=== PATIENT | female | born 1945 | race Caucasian/White ===

== ENCOUNTER 2018-06-22 08:12 | Outpatient (CLI) | payer MEDICARE ==
[2018-06-22 13:01] LABS: BASOPHILS # (AUTO) 0.1 10^3/uL (0.0-0.1); BASOPHILS % (AUTO) 0.9 %; EOSINOPHILS # (AUTO) 0.1 10^3/uL (0.0-0.7); EOSINOPHILS % (AUTO) 1.2 %; HGB - HEMOGLOBIN 13.9 g/dL (12.0-16.0); LYMPHOCYTES # (AUTO) 2.4 10^3/uL (1.5-3.5); LYMPHOCYTES % (AUTO) 33.9 %; MEAN CORPUSCULAR HEMOGLOBIN 31.8 pg (27.0-31.0); MEAN CORPUSCULAR HGB CONC 34.3 g/dL (32.0-36.0); MEAN CORPUSCULAR VOLUME 92.7 fL (81.0-99.0); MEAN PLATELET VOLUME 8.7 fL (7.9-10.8); MONOCYTES # (AUTO) 0.6 10^3/uL (0.0-1.0); MONOCYTES % (AUTO) 7.9 %; NEUTROPHILS # (AUTO) 3.9 10^3/uL (1.5-6.6); NEUTROPHILS % (AUTO) 56.1 %; PLT - PLATELET COUNT 65 10^3/uL (130-450); RED BLOOD COUNT 4.38 10^6/uL (4.20-5.40); RED CELL DISTRIBUTION WIDTH 13.3 % (12.0-15.0)
[2018-06-22 13:16] LABS: ALBUMIN/GLOBULIN RATIO 1.5 (1.0-2.2); ALKALINE PHOSPHATASE 63 IU/L (42-121); ALT ALANINE AMINOTRANSFERASE 20 IU/L (10-60); AST ASPARTATE AMINOTRANSFERASE 24 IU/L (10-42); BILIRUBIN,TOTAL 0.9 mg/dL (0.2-1.0); BUN - BLOOD UREA NITROGEN 15 mg/dL (6-20); CALCIUM 8.8 mg/dL (8.5-10.3); CARBON DIOXIDE - CO2 25 mmol/L (21-32); CHLORIDE 106 mmol/L (101-111); CHOL/HDL RATIO 2.7 (<4.4); CHOLESTEROL 200 mg/dL; CREATININE 0.9 mg/dL (0.4-1.0); GFR - MDRD 62 (>89); GLUCOSE 102 mg/dL (70-100); HDL CHOLESTEROL 74 mg/dL; SODIUM 138 mmol/L (135-145); TOTAL PROTEIN 6.7 g/dL (6.7-8.2)
[2018-06-22 13:23] LABS: PLATELET ESTIMATE, MANUAL NORMAL (130-450,000) (NORMAL)
[2018-06-22 13:24] LABS: PLATELET MORPHOLOGY PLATELET C (NORMAL)
[2018-06-22 13:26] LABS: THYROID STIMULATING HORMONE 2.42 uIU/mL (0.34-5.60)
[2018-06-22 13:53] LABS: LDL CHOLESTEROL,DIRECT 115 mg/dL; LDLD/HDL RATIO 1.6 (<4.4)
== END 2018-06-22 08:13 | disposition home or self-care (01) ==
LOC: LAB.N 08:12
PROVIDERS: ATTEND Nurse Practitioner
DX: I10 Essential (primary) hypertension (principal); E55.9 Vitamin D deficiency, unspecified; R53.83 Other fatigue
CPT/HCPCS: 36415; 80053; 80061; 82306; 82607; 82746; 83721; 84443; 85025

== ENCOUNTER 2018-07-04 11:25 | Outpatient (CLI) | payer MEDICARE ==
--- NOTE | 2018-07-13 11:19 | Mammography Report ---
Reason: SCREENING MAMMO Procedure Date: 07/04/2018 Accession Number: [id number] / [id number] Procedure: MGN - Screening Mammo Dig Bilat CPT Code: FULL RESULT: EXAM: Screening Mammo Dig Bilat DATE: 07/04/2018 11:43 AM CLINICAL HISTORY: 73-year-old female with family history of breast cancer in the daughter at age 46 for screening. TECHNIQUE: Bilateral CC and MLO views were obtained. COMPARISON: 08/24/2016, 08/07/2015, 06/21/2014, 12/15/2012. FINDINGS: The breasts demonstrate diffuse fatty replacement bilaterally. The right MLO view demonstrates a developing asymmetry 5.7 cm deep to the nipple centrally. There is no definite correlate on the cc projection. This possibly represents tissue overlap and additional views by tomography, spot technique and possibly ultrasound of the right breast are recommended to clarify the finding. No suspicious masses, clustered microcalcifications, or regions of architectural distortion are identified in the left breast. IMPRESSION: Incomplete examination RECOMMENDATION: Additional evaluation of the right breast with 3-D mammography and possibly ultrasound as above. BIRADS CATEGORY 0: Incomplete examination STANDARD QUALIFYING STATEMENTS: 1. This examination was reviewed with the aid of Computer-Aided Detection (CAD). 2. A negative or benign imaging report should not delay biopsy if clinically suspicious findings are present. Consider surgical consultation if warrented. More than 5% of cancers are not identified by imaging. 3. Dense breasts may obscure an underlying neoplasm. 4. This examination was reviewed without the aid of 3D breast imaging (tomosynthesis).
== END 2018-07-04 11:26 | disposition home or self-care (01) ==
LOC: DI.N 11:25
PROVIDERS: ATTEND Nurse Practitioner
DX: Z12.31 Encounter for screening mammogram for malignant neoplasm of breast (principal)
CPT/HCPCS: 77067

== ENCOUNTER 2018-08-08 09:04 | Outpatient (CLI) | payer MEDICARE ==
--- NOTE | 2018-08-08 16:29 | Mammography Report ---
Reason: ABN MAMMO - RT SPEC VIEWS Procedure Date: 08/08/2018 Accession Number: [id number] / [id number] Procedure: GLORIA - Diag Special Views Dig RT CPT Code: FULL RESULT: EXAM: Diag Special Views Dig RT DATE: 08/08/2018 10:05 AM CLINICAL HISTORY: Diagnostic mammogram for a right breast finding identified on screening which requires additional imaging. Family history of breast cancer in her daughter at the age of 48. TECHNIQUE: Bilateral CC, MLO and ML views are performed in 2-D and 3-D tomographic technique. COMPARISON: 07/04/2018 through 12/15/2012. FINDINGS: The breasts demonstrate diffuse fatty replacement bilaterally. The previously seen right breast finding is identified as prior soft tissue overlap with no underlying lesion, architectural distortion or suspicious calcifications and not replicated on today's images. There are no suspicious architectural distortions, calcifications or masses seen in either breast. IMPRESSION: Negative examination RECOMMENDATION: Recommend routine annual Screening mammography unless otherwise clinically indicated. BIRADS CATEGORY 1: Negative STANDARD QUALIFYING STATEMENTS: 1. This examination was not reviewed with the aid of Computer-Aided Detection (CAD). 2. A negative or benign imaging report should not delay biopsy if clinically suspicious findings are present. Consider surgical consultation if warrented. More than 5% of cancers are not identified by imaging. 3. Dense breasts may obscure an underlying neoplasm. 4. This examination was reviewed with the aid of 3D imaging (tomography).
== END 2018-08-08 09:05 | disposition home or self-care (01) ==
LOC: DI 09:04
PROVIDERS: ATTEND Nurse Practitioner
DX: R92.8 Other abnormal and inconclusive findings on diagnostic imaging of breast (principal); Z80.3 Family history of malignant neoplasm of breast

== ENCOUNTER 2018-11-03 09:49 | Outpatient (CLI) | payer OTHER ==
--- NOTE | 2018-11-04 10:13 | DEXA Report ---
Reason: BONE DISORDER Procedure Date: 11/03/2018 Accession Number: [id number] / [id number] Procedure: DEX - Dexa Spine and/or Hip CPT Code: FULL RESULT: EXAM: Dexa Spine and/or Hip DATE: 11/03/2018 10:12 AM CLINICAL HISTORY: BONE DISORDER TECHNIQUE: Dual energy x-ray absorptiometry (DXA) was performed on a [employer] System. Regions measured are the AP Spine, femoral neck, and if needed forearm. COMPARISON: None. In accordance with the International Society for Clinical Densitometry (ISCD) guidelines, data from previous exams may be reanalyzed using current recommendations and techniques. This is done to allow a more accurate basis for comparison with the current study. FINDINGS: The data for the lumbar spine is as follows: BMD (g/cm/cm) T-SCORE Z-SCORE REGION L1 0.901 -1.9 0.0 L2 1.295 0.8 2.7 L3 1.177 -0.2 1.7 L4 0.955 -2.0 -0.2 TOTAL 1.079 -0.8 1.0 NOTE: All evaluable vertebrae are used for classification The data for the hip is as follows: BMD (g/cm/cm) T-SCORE Z-SCORE REGION Neck 0.808 -1.7 0.2 TOTAL 0.775 -1.8 -0.2 NOTE: The femoral neck or total proximal femur, whichever is lowest, is used for classification. IMPRESSION: THE WHO CLASSIFICATION BASED ON THE INTERNATIONAL REFERENCE STANDARD IS OSTEOPENIA. THE FRACTURE RISK IS INCREASED. RECOMMENDATION: Patients with diagnosis of osteoporosis or osteopenia should have regular bone mineral density assessment. For those eligible for Medicare, routine testing is allowed once every 2 years. Testing frequency can be increased for patients who have rapidly progressing disease or for those who are receiving medical therapy to restore bone mass. COMMENT: World Health Organization (WHO) definitions for osteoporosis and osteopenia: NORMAL BMD: T-score at -1.0 or higher, fracture risk is low OSTEOPENIA BMD: T-score between -1.0 and -2.5, fracture risk is increased. OSTEOPOROSIS BMD: T-score at -2.5 or lower, fracture risk is high. National Osteoporosis Foundation recommends: 1. Obtain adequate dietary calcium (at least 1200 mg per day) and vitamin D (400-800 international units per day). 2. Participate, as appropriate, in regular weightbearing and muscle-strengthening exercise. 3. Avoid tobacco use and reduce alcohol and caffeine intake. 4. For more detailed information see the website at www.NOF.org.
== END 2018-11-03 09:50 | disposition home or self-care (01) ==
LOC: DI 09:49
PROVIDERS: ATTEND Nurse Practitioner
DX: M85.88 Other specified disorders of bone density and structure, other site (principal)
CPT/HCPCS: 77080

== ENCOUNTER 2020-04-29 09:27 | Outpatient (CLI) | payer MEDICARE, OTHER ==
[2020-04-29 11:46] LABS: BASOPHILS # (AUTO) 0.1 10^3/uL (0.0-0.1); BASOPHILS % (AUTO) 0.7 %; EOSINOPHILS # (AUTO) 0.1 10^3/uL (0.0-0.7); EOSINOPHILS % (AUTO) 1.6 %; HGB - HEMOGLOBIN 14.5 g/dL (12.0-16.0); LYMPHOCYTES # (AUTO) 2.6 10^3/uL (1.5-3.5); LYMPHOCYTES % (AUTO) 38.5 %; MEAN CORPUSCULAR HEMOGLOBIN 30.8 pg (27.0-31.0); MEAN CORPUSCULAR HGB CONC 32.9 g/dL (32.0-36.0); MEAN CORPUSCULAR VOLUME 93.6 fL (81.0-99.0); MONOCYTES # (AUTO) 0.6 10^3/uL (0.0-1.0); MONOCYTES % (AUTO) 8.1 %; NEUTROPHILS # (AUTO) 3.5 10^3/uL (1.5-6.6); NEUTROPHILS % (AUTO) 50.8 %; RED BLOOD COUNT 4.71 10^6/uL (4.20-5.40); RED CELL DISTRIBUTION WIDTH 12.6 % (12.0-15.0); WHITE BLOOD COUNT 6.8 x10^3/uL (4.8-10.8)
[2020-04-29 12:16] LABS: PLATELET MORPHOLOGY PLATELET CLUMPING (NORMAL)
[2020-04-29 12:17] LABS: PLATELET ESTIMATE, MANUAL NORMAL (130-450,000) (NORMAL)
[2020-04-29 12:19] LABS: ALBUMIN 4.3 g/dL (3.2-5.5); ALBUMIN/GLOBULIN RATIO 1.5 (1.0-2.2); ALKALINE PHOSPHATASE 72 IU/L (42-121); ALT ALANINE AMINOTRANSFERASE 18 IU/L (10-60); AST ASPARTATE AMINOTRANSFERASE 27 IU/L (10-42); BILIRUBIN,TOTAL 1.2 mg/dL (0.2-1.0); BUN - BLOOD UREA NITROGEN 14 mg/dL (6-20); CALCIUM 9.6 mg/dL (8.5-10.3); CARBON DIOXIDE - CO2 25 mmol/L (21-32); CHLORIDE 102 mmol/L (101-111); CHOL/HDL RATIO 3.2 (<4.4); CHOLESTEROL 205 mg/dL; CREATININE 0.8 mg/dL (0.4-1.0); GLUCOSE 102 mg/dL (70-100); HDL CHOLESTEROL 65 mg/dL; LDL CHOLESTEROL,CALCULATED 131 mg/dL; SODIUM 139 mmol/L (135-145); TOTAL PROTEIN 7.1 g/dL (6.7-8.2); VLDL CHOLESTEROL 9 mg/dL
[2020-04-29 12:20] LABS: RBC MORPHOLOGY (MULTIPLE) NORMAL APPEARANCE (NORMAL)
== END 2020-04-29 23:59 | disposition home or self-care (01) ==
LOC: LAB.WCP 09:27
PROVIDERS: ATTEND Physician Assistant
DX: I10 Essential (primary) hypertension (principal); Z79.899 Other long term (current) drug therapy
CPT/HCPCS: 36415; 80053; 80061; 83721; 84443; 85025

== ENCOUNTER 2020-05-14 08:16 | Outpatient (CLI) | payer MEDICARE ==
--- NOTE | 2020-05-15 10:01 | Mammography Report ---
BILATERAL DIGITAL SCREENING MAMMOGRAM 3D/2D: 05/14/2020 CLINICAL: Routine screening. Comparison is made to exams dated: 07/04/2018 mammogram and 06/28/2018 mammogram - [facility]. There are scattered fibroglandular elements in both breasts. No significant masses, calcifications, or other findings are seen in either breast. There has been no significant interval change. IMPRESSION: NEGATIVE There is no mammographic evidence of malignancy. A 1 year screening mammogram is recommended. This exam was interpreted at Station ID: [id number]. NOTE: For mammograms, a report in lay terms will be sent to the patient. Approximately 15% of breast malignancies will not be visualized mammographically. In the management of a palpable breast mass, a negative mammogram must not discourage biopsy of a clinically suspicious lesion. Electronically Signed By: Pool Echeverria M.D., jr/hayley:05/15/2020 08:42:45 ACR BI-RADS Category 1: Negative 3341F PARENCHYMAL PATTERN: (A) - The breast(s) demonstrate(s) scattered fibroglandular densities. BI-RADS CATEGORY: (1) - 1 RECOMMENDATION: (ANNUAL) - Recommend routine annual screening mammography. [id number] 1 year screening LATERALITY: (B)
== END 2020-05-14 08:17 | disposition home or self-care (01) ==
LOC: DI.N 08:16
DX: Z12.31 Encounter for screening mammogram for malignant neoplasm of breast (principal)
CPT/HCPCS: 77063; 77067

== ENCOUNTER 2022-03-26 10:03 | Outpatient (CLI) | payer MEDICARE ==
[2022-03-26 12:17] LABS: ALBUMIN 4.4 g/dL (3.2-5.5); ALBUMIN/GLOBULIN RATIO 1.6 (1.0-2.2); ALKALINE PHOSPHATASE 62 IU/L (42-121); ALT ALANINE AMINOTRANSFERASE 18 IU/L (10-60); AST ASPARTATE AMINOTRANSFERASE 25 IU/L (10-42); BASOPHILS # (AUTO) 0.1 10^3/uL (0.0-0.1); BASOPHILS % (AUTO) 1.4 %; BILIRUBIN,TOTAL 1.1 mg/dL (0.2-1.0); BUN - BLOOD UREA NITROGEN 22 mg/dL (6-20); CALCIUM 9.6 mg/dL (8.5-10.3); CARBON DIOXIDE - CO2 26 mmol/L (21-32); CHLORIDE 104 mmol/L (101-111); CHOL/HDL RATIO 3.3 (<4.4); CHOLESTEROL 238 mg/dL; EOSINOPHILS # (AUTO) 0.2 10^3/uL (0.0-0.7); EOSINOPHILS % (AUTO) 2.3 %; GFR - MDRD 54 (>89); GLUCOSE 106 mg/dL (70-100); HCT - HEMATOCRIT 43.6 % (37.0-47.0); HDL CHOLESTEROL 72 mg/dL; HGB - HEMOGLOBIN 14.8 g/dL (12.0-16.0); LDL CHOLESTEROL,CALCULATED 154 mg/dL; LDL/HDL RATIO 2.1 (<4.4); LYMPHOCYTES # (AUTO) 2.3 10^3/uL (1.5-3.5); LYMPHOCYTES % (AUTO) 35.6 %; MEAN CORPUSCULAR HEMOGLOBIN 31.1 pg (27.0-31.0); MEAN CORPUSCULAR HGB CONC 33.9 g/dL (32.0-36.0); MEAN CORPUSCULAR VOLUME 91.6 fL (81.0-99.0); MEAN PLATELET VOLUME 11.5 fL (7.9-10.8); MONOCYTES # (AUTO) 0.6 10^3/uL (0.0-1.0); MONOCYTES % (AUTO) 8.4 %; NEUTROPHILS # (AUTO) 3.4 10^3/uL (1.5-6.6); POTASSIUM 4.2 mmol/L (3.5-5.0); RED BLOOD COUNT 4.76 10^6/uL (4.20-5.40); RED CELL DISTRIBUTION WIDTH 13.4 % (12.0-15.0); SODIUM 140 mmol/L (135-145); TOTAL PROTEIN 7.2 g/dL (6.7-8.2); TRIGLYCERIDES 62 mg/dL; VLDL CHOLESTEROL 12 mg/dL; WHITE BLOOD COUNT 6.6 x10^3/uL (4.8-10.8)
[2022-03-26 12:28] LABS: THYROID STIMULATING HORMONE 2.81 uIU/mL (0.34-5.60)
[2022-03-26 12:31] LABS: PLATELET MORPHOLOGY PLATELET CLUMPING (NORMAL); SLIDE REVIEW? Indicated
[2022-03-26 12:32] LABS: RBC MORPHOLOGY (MULTIPLE) NORMAL APPEARANCE (NORMAL)
== END 2022-03-26 10:04 | disposition home or self-care (01) ==
LOC: LAB.N 10:03
PROVIDERS: ATTEND Nurse Practitioner
DX: I10 Essential (primary) hypertension (principal); Z13.220 Encounter for screening for lipoid disorders; Z86.39 Personal history of other endocrine, nutritional and metabolic disease
CPT/HCPCS: 36415; 80053; 80061; 83721; 84443; 85025

== ENCOUNTER 2022-12-05 00:49 | Outpatient (CLI) | payer MEDICARE | END 2022-12-05 23:59 | disposition critical access hospital (66) | LOC: EMS 00:49 | DX: R41.0 Disorientation, unspecified (principal) | CPT/HCPCS: A0425; A0429 ==

== ENCOUNTER 2022-12-05 01:38 | Emergency (ER) | payer MEDICARE ==
--- NOTE | 2022-12-05 01:52 | ED Physician Documentation ---
PD HPI ALTERED MENTAL STATUS - Stated complaint Stated Complaint: AMS - Chief complaint Chief Complaint: Neuro - History obtained from History obtained from: Patient, Family - History of Present Illness Basline status: Alert and oriented X 3, Ambulatory, Independent - Additional information Additional information: HPI is predominantly from patient's , as patient's presenting issue is short-term memory loss. The patient is able to converse articulately although clearly has anterograde amnesia since onset of symptoms at 10 PM. Patient is brought in by ambulance. Patient's says that he and the patient were watching a baseball game tonight and he was getting tired and told patient he was going to bed. This was at approximately 10 PM. The patient then asked the why he had a suitcase out. The says that he and his had just returned from a long car trip from [place] this evening and he reminded the patient that they jus t had a long car trip earlier in the day, and the patient had no recollection of this. says patient has no history of dementia or any other problems with memory. He noted that patient remained completely articulate and able to recall information and details up until earlier today, but over the ensuing few hours before calling 911, he became increasingly aware that the patient was unable to retain new information, repeating questions he had answered just minutes earlier. He did not notice any weakness, slurred speech. He contacted a family member is in the medical profession and due to the persistence of symptoms he then called 911. On my HPI, patient says she feels "fine". She does not know how she got to the emergency department and when I tell her that she came in by ambulance, she is very upset because she has no recollection of this. FSBS by EMS is 116. Patient's only medical history is hypertension for which she takes lisinopril. Review of Systems Constitutional: denies: Fever, Chills, Sweats Cardiac: reports: Reviewed and negative Respiratory: reports: Reviewed and negative GI: reports: Reviewed and negative Musculoskeletal: reports: Reviewed and negative Neurologic: reports: Altered mental status. denies: Generalized weakness, Focal weakness, Numbness, Difficulty speaking, Headache, Head injury, LOC PD PAST MEDICAL HISTORY - Past Medical History Past Medical History: Yes Cardiovascular: Hypertension - Present Medications Home Medications: Ambulatory Orders Medication Instructions Recorded Confirmed Lisinopril [Zestril] 10 mg PO DAILY 04/01/23 04/01/23 - Allergies Allergies/Adverse Reactions: Allergies Allergy/AdvReac Type Severity Reaction Status Date / Time No Known Drug Allergies Allergy Verified 12/05/22 03:18 - Living Situation Living Situation: reports: With spouse/s.o. Living Arrangement: reports: At home PD ED PE NORMAL - Vitals Vital signs reviewed: Yes - General General: Alert and oriented X 3, No acute distress, Well developed/nourished - HEENT HEENT: PERRL, EOMI, Moist mucous membranes - Neck Neck: Supple, no meningeal sign - Cardiac Cardiac: RRR, No murmur - Respiratory Respiratory: No respiratory distress, Clear bilaterally - Abdomen Abdomen: Soft, Non tender - Neuro Neuro: Alert and oriented X 3, strategy manager 2-12 intact, No motor deficit, No sensory deficit, Normal speech Eye Opening: Spontaneous Motor: Obeys Commands Verbal: Oriented GCS Score: 15 NIHSS - Time Time: 02:45 - Level of Consciousness Level of consciousness: (0) Alert, Keenly responsive LOC Questions: (1) Answers one Q correctly (does not know her age) LOC Commands: (0) Performs both correctly - Gaze Best Gaze: (0) Normal - Visual Visual: (0) No loss - Facial Palsy Facial Palsy: (0) Normal, symmetrical movement - Motor Arms (both separate) Motor Arm (right): (0) No drift Motor Arm (left): (0) No drift - Motor Legs (both separate) Motor Leg (right): (0) No drift Motor Leg (left): (0) No drift - Limb Ataxia Limb Ataxia: (0) Absent - Sensory Sensory: (0) Normal - Best Language Best Language: (0) No aphasia - Dysarthria Dysarthria: (0) Normal - Extinction and Inattention (formally neg Extinction and inattention: (0) No abnormality - Total Score/Results Total Score/Result: 1 Results - Vitals Vitals: Vital Signs - 24 hr 12/05/22 12/05/22 12/05/22 01:48 02:42 03:45 Temperature 36.6 C Heart Rate 95 92 92 Respiratory 16 99 H 24 Rate Blood Pressure 140/82 H 135/112 H 132/76 H O2 Saturation 94 100 98 12/05/22 12/05/22 12/05/22 05:44 06:24 07:20 Temperature 36.4 C L Heart Rate 97 86 88 Respiratory 19 12 12 Rate Blood Pressure 102/62 119/67 121/68 O2 Saturation 97 97 96 Oxygen O2 Source Room air - Labs Labs: Laboratory Tests 12/05/22 12/05/22 12/05/22 02:05 02:05 03:00 WBC 18.0 H RBC 4.52 Hgb 13.8 Hct 41.3 MCV 91.4 MCH 30.5 MCHC 33.4 RDW 12.9 Plt Count 200 MPV 10.2 Neut # (Auto) 15.4 H Lymph # (Auto) 1.3 L [place] # (Auto) 1.1 H Eos # (Auto) 0.1 Baso # (Auto) 0.1 Absolute Nucleated RBC 0.00 Nucleated RBC % 0.0 Sodium 139 Potassium 3.6 Chloride 107 Carbon Dioxide 23 Anion Gap 9.0 BUN 25 H Creatinine 0.9 Estimated GFR (MDRD) 61 L Glucose 134 H Calcium 8.9 Total Bilirubin 0.9 AST 23 ALT 19 Alkaline Phosphatase 60 Total Protein 6.8 Albumin 4.0 Globulin 2.8 Albumin/Globulin Ratio 1.4 Lipase 32 Urine Color COLORLESS Urine Clarity CLEAR Urine pH 5.5 Ur Specific [place] <=1.005 Urine Protein NEGATIVE Urine Glucose (UA) NEGATIVE Urine Ketones NEGATIVE Urine Occult Blood NEGATIVE Urine Nitrite NEGATIVE Urine Bilirubin NEGATIVE Urine Urobilinogen 0.2 (NORMAL) Ur Leukocyte Esterase NEGATIVE Ur Microscopic Review NOT INDICATED Urine Culture Comments NOT INDICATED - Rads (name of study) CTH Relevant Findings:: Prelim report reviewed, See rad report CTA head Relevant Findings:: Prelim report reviewed, See rad report CTA neck Relevant Findings:: Prelim report reviewed, See rad report PD Medical Decision Making - ED course Complexity details: reviewed results, re-evaluated patient, considered differential, d/w patient, d/w family ED course: Patient is awake, alert, and she is able to answer orientation questions x3 accurately. However, she clearly demonstrates lack of ability to retain new information. Each time I would return to reevaluate the patient, she had no recollection of meeting me. She would consistently forget how she had arrived to the emergency department (sometimes forgetting within the same conversation a few minutes after being reminded how she arrived), and each time she was reminded that she arrived by ambulance, she would become quite upset due to the realization that she is having acute memory problems. She does not recall the long car trip back from [place] earlier today. She is able to name all of her children and their dates without hesitation or difficulty; however, while she can remember her own birthday, when we then asked her age she does not know nor even have a guess. CT head is unremarkable, as are CTA of her head and CTA of her neck. She has an elevated white blood cell count (18), but is afebrile, has no elements of the history nor the physical to suggest infectious etiology. Her urinalysis is normal. She has an elevated BUN (25) with a normal creatinine (0.9); while dehydration would not account for symptoms, she is given a fluid bolus for this elevated BUN/creatinine ratio. Her presentation is increasingly suggestive of transient global amnesia. I c onsulted neurology on-call for [facility] (Dr. Kamara); he recommends MRI brain, looking for evidence of CVA (such as hippocampus). He decreased that transient global amnesia seems the likely diagnosis, and that patient would be appropriate for discharge home if the MR I is unremarkable and her symptoms are improving or, ideally, resolved. [facility] (Dr. Valdez) at the end of my shift. She is pending MRI. Shortly after turnover of care, I reevaluated patient one last time and she is finally showing improvement in her ability to retain new information. While she does not remember my name, she says she remembers me, accurately saying "you were in here about half an hour ago". She still does not remember coming in by ambulance, but she is no longer upset by this information, and appears to be having some recollection of being told she came in by ambulance before. She also is starting to remember some parts of the trip home from [place] yesterday.
[2022-12-05] MEDS ORDERED: iohexoL-300 100 ML VIAL ONE (02:03)
[2022-12-05 02:08] LABS: BASOPHILS # (AUTO) 0.1 10^3/uL (0.0-0.1); BASOPHILS % (AUTO) 0.3 %; EOSINOPHILS # (AUTO) 0.1 10^3/uL (0.0-0.7); EOSINOPHILS % (AUTO) 0.4 %; HCT - HEMATOCRIT 41.3 % (37.0-47.0); HGB - HEMOGLOBIN 13.8 g/dL (12.0-16.0); LYMPHOCYTES # (AUTO) 1.3 10^3/uL (1.5-3.5); LYMPHOCYTES % (AUTO) 7.4 %; MEAN CORPUSCULAR HEMOGLOBIN 30.5 pg (27.0-31.0); MEAN CORPUSCULAR HGB CONC 33.4 g/dL (32.0-36.0); MEAN CORPUSCULAR VOLUME 91.4 fL (81.0-99.0); MEAN PLATELET VOLUME 10.2 fL (7.9-10.8); MONOCYTES # (AUTO) 1.1 10^3/uL (0.0-1.0); MONOCYTES % (AUTO) 5.9 %; NEUTROPHILS # (AUTO) 15.4 10^3/uL (1.5-6.6); NEUTROPHILS % (AUTO) 85.5 %; PLT - PLATELET COUNT 200 10^3/uL (130-450); RED BLOOD COUNT 4.52 10^6/uL (4.20-5.40); RED CELL DISTRIBUTION WIDTH 12.9 % (12.0-15.0)
[2022-12-05 02:22] LABS: ALBUMIN/GLOBULIN RATIO 1.4 (1.0-2.2); BILIRUBIN,TOTAL 0.9 mg/dL (0.2-1.0); CALCIUM 8.9 mg/dL (8.5-10.3); CREATININE 0.9 mg/dL (0.4-1.0); POTASSIUM 3.6 mmol/L (3.5-5.0); TOTAL PROTEIN 6.8 g/dL (6.7-8.2)
[2022-12-05] MEDS ORDERED: iohexoL-300 100 ML VIAL IVP ONE (02:57)
[2022-12-05] MEDS ORDERED: SODIUM CHLORIDE 0.9% 1,000 ML IV STA (03:04)
[2022-12-05 03:22] LABS: BILIRUBIN,URINE NEGATIVE (NEGATIVE); GLUCOSE, URINE (UA) NEGATIVE (NEGATIVE); KETONES,URINE (UA) NEGATIVE (NEGATIVE); LEUKOCYTE ESTERASE, URINE NEGATIVE (NEGATIVE); NITRITE,URINE NEGATIVE (NEGATIVE); OCCULT BLOOD,URINE NEGATIVE (NEGATIVE); PH,URINE 5.5 PH (5.0-7.5); PROTEIN,URINE NEGATIVE (NEGATIVE); UROBILINOGEN,URINE 0.2 (NORMAL) E.U./dL (NORMAL)
[2022-12-05 03:23] LABS: CLARITY,URINE CLEAR (CLEAR)
--- NOTE | 2022-12-05 10:06 | CT Report ---
PROCEDURE: Head W/O Stroke Protocol INDICATIONS: AMS TECHNIQUE: Noncontrast 4.5 mm thick angled axial sections acquired from the foramen magnum to the vertex, with c oronal reformats. For radiation dose reduction, the following was used: automated exposure control, adjustment of mA and/or kV according to patient size. COMPARISON: Correlation is made with the subsequently performed angiograms. FINDINGS: Image quality: There is streak artifact seen through the skull base. CSF spaces: Basal cisterns are patent. No extra-axial fluid collections. Ventricles are normal in size and shape. Brain: No midline shift. No intracranial masses or hemorrhage. Guzman-white matter interface is norm al. Skull and face: Calvarium and visualized facial bones are intact, without suspicious lesions. Sinuses: Visualized sinuses and mastoids are clear. IMPRESSION: No intracranial hemorrhage is seen. No significant intracranial abnormality is seen. Note: No significant discrepancy from the preliminary report. This study fulfills neurological imaging criteria for inclusion or exclusion of acute stroke therapie s based on available published neurological imaging guidelines. Reviewed by: Rick Cao MD on 12/05/2022 9:04 AM [facility] Approved by: Rick Cao MD on 12/05/2022 9:04 AM [facility] Station ID: [id number]
--- NOTE | 2022-12-05 10:08 | CT Report ---
PROCEDURE: ANGIO HEAD W/WO INDICATIONS: AMS CONTRAST: 100 ML OMNI 300 TECHNIQUE: Precontrast 4.5 mm thick angled axial sections acquired from the foramen magnum to the vertex. Afte r the administration of intravenous contrast, 1 mm thick sections acquired through the [place] is. Postcontrast 4.5 mm thick sections then re-acquired from the foramen magnum to the vertex. 3-di mensional kkvxhta-xpxxdrdbt-pbhkiullol (MIP) and/or volume rendering reformats were acquired of the c entral intracranial vasculature. For radiation dose reduction, the following was used: automated ex posure control, adjustment of mA and/or kV according to patient size. COMPARISON: Correlation is made with the accompanying noncontrast head CT and the neck CT angiogram, 12/05/2022. FINDINGS: Image quality: Excellent. Anterior circulation: Intracranial internal carotid arteries are normal in size and flow. The flow within the paired anterior cerebral arteries is within normal limits, with note made of an accessory anterior cerebral artery branch emanating from the anterior communicating artery. The flow within th e middle cerebral arteries is normal and symmetric. The anterior communicating artery is seen. No a neurysms are seen. Posterior circulation: Visualized portions of the vertebral arteries demonstrate normal caliber, and join to form a normal appearing basilar artery. Flow within the posterior cerebral arteries is norm al and symmetric. No aneurysms are seen. CSF spaces: Ventricles are normal in size and shape. Basal cisterns are patent. No extra-axial flu id collections. Brain: No midline shift. No intracranial bleeds or masses. Guzman-white matter interface appears int act. Skull and face: Calvarium and facial bones appear intact, without suspicious lesions. Sinuses: Visualized sinuses and mastoids are clear. IMPRESSION: No significant intracranial arterial abnormalities are seen. Note: No significant discrepancy from the preliminary report. Reviewed by: Rick Cao MD on 12/05/2022 9:07 AM [facility] Approved by: Rick Cao MD on 12/05/2022 9:07 AM [facility] Station ID: [id number]
--- NOTE | 2022-12-05 10:13 | CT Report ---
PROCEDURE: ANGIO NECK W INDICATIONS: AMS CONTRAST: 100 ML OMNI 300 TECHNIQUE: After the administration of intravenous contrast, 1.5 mm axial sections acquired from the aortic arch to the [place]. Coronal 3-D maximum intensity projection (MIP) and/or volume rendering ref ormats were then performed. For radiation dose reduction, the following was used: automated exposur e control, adjustment of mA and/or kV according to patient size. COMPARISON: Correlation is made with the accompanying head CT angiogram and noncontrast head CT, 12/05. FINDINGS: Image quality: Excellent. Carotid system: The great vessels demonstrate a conventional anatomy as they arise from the aortic a rch. The origins of the common carotid arteries appear patent. The common carotid arteries demonstr ate normal calibers and courses. The bifurcation regions demonstrate atherosclerotic irregularity, y et without a hemodynamically significant stenosis. The more distal internal carotid arteries demonstr ate normal course and caliber. Posterior circulation: The origins of the vertebral arteries appear patent. The more superior porti ons of the vertebral arteries demonstrate normal course and caliber. They join to form a normal appe aring basilar artery. Soft tissues: Visualized neck soft tissues demonstrate no suspicious abnormalities. Prior left keenan thyroidectomy can be seen. The right thyroid demonstrates irregularity, yet without suspicious nodule . Bones: No suspicious bony lesions. Visualized cervical spine appears normally aligned. Moderate c ervical spine degenerative change is seen. IMPRESSION: No hemodynamically significant stenosis can be seen within the arteries of the neck. Age-appropriate atrophy calcification and irregularity can be seen involving the carotid bifurcation regions. Additional findings: Moderate cervical spine degenerative change Prior left hemithyroidectomy The estimate of stenosis included in the report of the imaging study was calculated using the NASCET method Note: No significant discrepancy from the preliminary report. Reviewed by: Rick Cao MD on 12/05/2022 9:11 AM [facility] Approved by: Rick Cao MD on 12/05/2022 9:11 AM [facility] Station ID: [id number]
--- NOTE | 2022-12-05 12:51 | MRI Report ---
PROCEDURE: BRAIN WO INDICATIONS: TGA/ acute short term memory issue TECHNIQUE: Noncontrast axial T1 spin echo, axial T2 fast spin echo, sagittal and axial FLAIR, coronal T2 fast sp in echo, axial gradient echo, axial diffusion and ADC through the brain. COMPARISON: Correlation is made with the accompanying CT examinations. FINDINGS: Image quality: Motion artifact is noted. CSF Spaces: Basal cisterns are patent. No extra-axial fluid collections. Ventricles are normal in size and shape. Brain: No intracranial masses or hemorrhage. Guzman/white matter interface is normal. Brainstem appe ars normal. Diffusion-weighted images demonstrate no acute ischemic insult. No chronic ischemic ins ults. Normal intravascular flow voids are present. Skull and face: Calvarium has normal marrow signal. Orbits appear normal. Incidental note is made of bilateral lens replacements. Sinuses: Sinuses and mastoids are clear. IMPRESSION: Motion limited study, without findings of acute or subacute infarction. Reviewed by: Rick Cao MD on 12/05/2022 11:50 AM [facility] Approved by: Rick Cao MD on 12/05/2022 11:50 AM [facility] Station ID: [id number]
[2022-12-05 13:13] VITALS: BP 130/80
--- NOTE | 2022-12-05 13:56 | ED Physician Documentation ---
ED Addendum - Addendum Addendum: 12/05/22 13:53 The patient rested comfortably through the morning. She did have a light breakfast as the MRI was not scheduled or planned until approximately noon. She remained comfortable without any problems. She had a slow improvement in her current memory acquisition (for example she was remembering that the prior physician had been here and did recognize that I was a different person and she also remembered Dr. Harris telling her she had arrived by ambulance but she does not remember the actual ambulance ride). She went for brain MRI and the results are now back showing no acute abnormality. Her is present as I discussed this with her. She is having improvement in her memory as of yesterday and this morning in the ER but still no memory of events at home earlier or the ambulance ride here. The patient and her are comfortable with discharge at this time. She was instructed to not do things like driving that would require short-term memory of where you have been and where you are going. She should limit this for a day or 2 until she is sure to be quite back to normal. However the functionality of driving should be appropriate. Otherwise no particular limitation on activities. Disposition: The patient is discharged home in stable condition. Diagnoses: 1. Acute transient memory loss 2. Transient global amnesia
== END 2022-12-05 14:01 | disposition home or self-care (01) ==
LOC: EDUNIT# → ED 01:38
DX: I10 Essential (primary) hypertension (principal)
CPT/HCPCS: 36415; 70450; 70496; 70498; 70551; 80053; 81003; 83690; 85025; 96360; 99284; Q9967; 81001; 87086

== ENCOUNTER 2023-10-20 08:47 | Outpatient (CLI) | payer MEDICARE ==
--- NOTE | 2023-10-21 09:01 | Mammography Report ---
BILATERAL DIGITAL SCREENING MAMMOGRAM 3D/2D: 10/20/2023 CLINICAL: Routine screening. Family history of breast cancer. Comparison is made to exams dated: 04/09/2022 mammogram, 05/14/2020 mammogram, 07/04/2018 mammogram, and 06/28/2018 mammogram - [facility]. Both breasts are almost entirely fatty (category a/<25% glandular tissue). No significant masses, calcifications, or other findings are seen in either breast. There has been no significant interval change. IMPRESSION: NEGATIVE There is no mammographic evidence of malignancy. A 1 year screening mammogram is recommended. Based on the Tyrer Cuzick model (a risk assessment model) the patient's lifetime risk is 3.2% and her 10 year risk is 0.0%. According to the ACR, ACS, and NCCN guidelines, an annual breast MRI exam roel g with mammogram is recommended if the patient's lifetime risk is 20% or greater. This exam was interpreted at Station ID: [id number]. NOTE: For mammograms, a report in lay terms will be sent to the patient. Approximately 15% of breast malignancies will not be visualized mammographically. In the management of a palpable breast mass, a negative mammogram must not discourage biopsy of a clinically suspicious lesion. Electronically Signed By: Robinson [email or web address]:10/20/2023 16:58:03 letter sent: No_Letter ACR BI-RADS Category 1: Negative 3341F PARENCHYMAL PATTERN: (F) - The breast(s) demonstrate(s) diffuse fatty replacement. BI-RADS CATEGORY: (1) - 1 Mammogram [id number] 1 year screening LATERALITY: (B)
== END 2023-10-20 08:48 | disposition home or self-care (01) ==
LOC: DI.N 08:47
DX: Z12.31 Encounter for screening mammogram for malignant neoplasm of breast (principal); Z80.3 Family history of malignant neoplasm of breast

== ENCOUNTER 2023-10-28 08:13 | Outpatient (CLI) | payer MEDICARE ==
[2023-10-28 11:42] LABS: BASOPHILS # (AUTO) 0.1 10^3/uL (0.0-0.1); BASOPHILS % (AUTO) 1.4 %; EOSINOPHILS # (AUTO) 0.2 10^3/uL (0.0-0.7); EOSINOPHILS % (AUTO) 2.2 %; HCT - HEMATOCRIT 45.1 % (37.0-47.0); HGB - HEMOGLOBIN 14.7 g/dL (12.0-16.0); LYMPHOCYTES # (AUTO) 2.7 10^3/uL (1.5-3.5); LYMPHOCYTES % (AUTO) 32.7 %; MEAN CORPUSCULAR HEMOGLOBIN 30.7 pg (27.0-31.0); MEAN CORPUSCULAR HGB CONC 32.6 g/dL (32.0-36.0); MEAN CORPUSCULAR VOLUME 94.2 fL (81.0-99.0); MEAN PLATELET VOLUME 9.9 fL (7.9-10.8); MONOCYTES # (AUTO) 0.7 10^3/uL (0.0-1.0); MONOCYTES % (AUTO) 8.1 %; NEUTROPHILS # (AUTO) 4.5 10^3/uL (1.5-6.6); NEUTROPHILS % (AUTO) 55.4 %; RED BLOOD COUNT 4.79 10^6/uL (4.20-5.40); RED CELL DISTRIBUTION WIDTH 13.4 % (12.0-15.0); WHITE BLOOD COUNT 8.1 x10^3/uL (4.8-10.8)
[2023-10-28 12:02] LABS: PLATELET MORPHOLOGY PLATELET CLUMPING (NORMAL)
[2023-10-28 12:05] LABS: ALBUMIN 4.4 g/dL (3.2-5.5); ALBUMIN/GLOBULIN RATIO 1.5 (1.0-2.2); ALKALINE PHOSPHATASE 62 IU/L (42-121); ALT ALANINE AMINOTRANSFERASE 15 IU/L (10-60); AST ASPARTATE AMINOTRANSFERASE 21 IU/L (10-42); BUN - BLOOD UREA NITROGEN 24 mg/dL (6-20); CALCIUM 9.7 mg/dL (8.5-10.3); CARBON DIOXIDE - CO2 26 mmol/L (21-32); CHLORIDE 106 mmol/L (101-111); CHOL/HDL RATIO 3.2 (<4.4); CHOLESTEROL 211 mg/dL; GFR - MDRD 54 (>89); GLUCOSE 115 mg/dL (74-104); HDL CHOLESTEROL 65 mg/dL; LDL CHOLESTEROL,CALCULATED 129 mg/dL; SODIUM 140 mmol/L (135-145); TOTAL PROTEIN 7.3 g/dL (6.4-8.9); TRIGLYCERIDES 83 mg/dL (48-352); VLDL CHOLESTEROL 17 mg/dL
[2023-10-28 12:08] LABS: THYROID STIMULATING HORMONE 2.47 uIU/mL (0.34-5.60)
== END 2023-10-28 08:14 | disposition home or self-care (01) ==
LOC: LAB.N 08:13
PROVIDERS: ATTEND Nurse Practitioner
DX: I10 Essential (primary) hypertension (principal); Z13.220 Encounter for screening for lipoid disorders
CPT/HCPCS: 36415; 80053; 80061; 83721; 84443; 85025